=== PATIENT | male | born 1940 | race Caucasian/White ===

== ENCOUNTER 2016-03-02 15:25 | Inpatient (IN) | payer MEDICARE, BC ==
[~2016-03-02] VITALS: Ht 157.5 cm; Wt 62.0 kg
[2016-03-02 15:39] VITALS: BP 183/98; PULSE 82; RESP 17; TEMP 98.5; O2SAT 98
[2016-03-02] MEDS ORDERED: ATOR10TA15 PO (15:56)
[2016-03-02] MEDS ORDERED: DIOV160T6 PO (15:56)
[2016-03-02] MEDS ORDERED: ASPI81CH37 CHEW (15:56)
[2016-03-02] MEDS ORDERED: METF500T4 PO (15:56)
[2016-03-02] MEDS ORDERED: CARV3.12 PO (15:56)
[2016-03-02] MEDS ORDERED: SERO50TA PO (15:56)
[2016-03-02] MEDS ORDERED: SYMB80AE INH (15:56)
[2016-03-02] MEDS ORDERED: AMLO10TA2 PO (15:56)
[2016-03-02] MEDS ORDERED: CYAN100025 SL (15:56)
[2016-03-02] MEDS ORDERED: NAME5TAB2 PO (15:56)
[2016-03-02] MEDS ORDERED: PLAV75TA29 PO (15:56)
[2016-03-02] MEDS ORDERED: RANI1TAB7 PO (15:56)
[2016-03-02] MEDS ORDERED: MEMA1TAB2 PO (15:56)
--- NOTE | 2016-03-02 16:45 | PD ---
HPI Chief Complaint: Psychiatric Symptoms Time Seen by Provider: 16:41 Travel History International Travel<30 days: No Contact w/Intl Traveler<30days: No Traveled to known affect area: No History of Present Illness HPI 76-year-old male that presents to the ED for evaluation of Rajput act. Patient apparently was Rajput acted by police because apparently his been more paranoid and aggressive towards home nurse as well as to worse significant other. Police was contacted and they Rajput acted the patient because of this. Patient was taken to [facility] but for unknown reason patient was brought here for evaluation. Patient denies any medical problems to me. He denies any history of depression or anxiety. He states that about a week ago he did develop some chest pressure but it's been gone for the past 3 days. Per patient she's never had this before. Per patient he had a problem with high blood pressure for which he takes medications. Denies any posterior cholesterol. He does state having a no history of smoking. He denies any hallucinations. No agitation. Denies any homicidal or systolic ideation to me. There is no family to give me a bright any information and all information is obtained from the paperwork given from [facility] for the reason of the Rajput act. He has never been here before for something like this. At this time he denies any pain. He denies any nausea or vomiting. No urinary bowel movement issues. No fevers chills or sweats. He is very calm and denies anything. From my initial evaluation I do believe the patient has some sort of the early dementia which is on his diagnosis list from [facility] Past Medical History Anemia: Yes Cancer: Yes (Prostate) Cardiac Catheterization: Yes High Cholesterol: Yes Coronary Artery Disease: Yes Diabetes: No Patient Takes Glucophage: No GERD: Yes Hypertension: Yes Sleep Apnea: Yes Tetanus Vaccination: Unknown Influenza Vaccination: Yes Past Surgical History Appendectomy: Yes Coronary Stent: Yes Other Surgery: Yes (TURP) Social History Alcohol Use: Yes (occ) Tobacco Use: No Substance Use: No Allergies-Medications (Allergen,Severity, Reaction): Coded Allergies: No Known Allergies (Unverified , 03/02/16) Reported Meds & Prescriptions Reported Meds & Active Scripts Active Reported Seroquel (Quetiapine Fumarate) 50 Mg Tab 50 Mg PO HS Symbicort Inh (Budesonide/Formoterol Fumarate) 80-4.5 Mcg/Act Aero 2 Puff INH Q12HR B-12 (Cyanocobalamin) 1,000 Mcg Subl 1,000 Mcg SL DAILY Namenda (Memantine) 5 Mg Tab 5 Mg PO DAILY Atorvastatin (Atorvastatin Calcium) 10 Mg Tab 10 Mg PO HS Diovan (Valsartan) 160 Mg Tab 160 Mg PO DAILY Amlodipine (Amlodipine Besylate) 10 Mg Tab 10 Mg PO DAILY Aspirin Low Dose (Aspirin) 81 Mg Chew 81 Mg CHEW DAILY Memantine 10 Mg Tab 10 Mg PO BID Plavix (Clopidogrel Bisulfate) 75 Mg Tab 75 Mg PO DAILY Carvedilol 3.125 Mg Tab 3.125 Mg PO BID Metformin ER (Metformin HCl) 500 Mg Stewart 500 Mg PO DAILY With evening meal Ranitidine Maximum Strength (Ranitidine HCl) 150 Mg Tab 150 Mg PO BID Review of Systems Except as stated in HPI: all other systems reviewed are Neg Physical Exam Narrative GENERAL: SKIN: Warm and dry. HEAD: Atraumatic. Normocephalic. EYES: Pupils equal and round. No scleral icterus. No injection or drainage. ENT: No nasal bleeding or discharge. Mucous membranes pink and moist. Tongue is midline. No uvula deviation. NECK: Trachea midline. No JVD. CARDIOVASCULAR: Regular rate and rhythm. No murmurs, S3, S4. RESPIRATORY: No accessory muscle use. Clear to auscultation. Breath sounds equal bilaterally. GASTROINTESTINAL: Abdomen soft, non-tender, nondistended. Hepatic and splenic margins not palpable. MUSCULOSKELETAL: Extremities without clubbing, cyanosis, or edema. No obvious deformities. Full range of motion of the upper and lower extremities bilaterally. 2+ pulses bilaterally. NEUROLOGICAL: Awake and alert. No obvious cranial nerve deficits. Motor grossly within normal limits. Five out of 5 muscle strength in the arms and legs. Normal speech. PSYCHIATRIC: Demented mood and affect; insight and judgment normal. Data Data Last Documented VS Vital Signs Date Time Temp Pulse Resp B/P Pulse Ox O2 Delivery O2 Flow Rate FiO2 03/02/16 15:39 98.5 82 17 183/98 98 Orders Complete Blood Count With Diff (03/02/16 16:16) Comprehensive Metabolic Panel (03/02/16 16:16) Urinalysis - C+S If Indicated (03/02/16 16:16) Drug Screen, Random Urine (03/02/16 16:16) Alcohol (Ethanol) (03/02/16 16:16) Psych Screen (03/02/16 16:16) Ct Brain W/O Iv Contrast(Rout) (03/02/16 ) Troponin I (03/02/16 16:34) Electrocardiogram (03/02/16 ) Labs Laboratory Tests Test 03/02/16 03/02/16 17:00 17:19 White Blood Count 7.3 TH/MM3 Red Blood Count 4.78 MIL/MM3 Hemoglobin 12.2 GM/DL Hematocrit 37.6 % Mean Corpuscular Volume 78.7 FL Mean Corpuscular Hemoglobin 25.5 PG Mean Corpuscular Hemoglobin 32.4 % Concent Red Cell Distribution Width 16.3 % Platelet Count 297 TH/MM3 Mean Platelet Volume 8.4 FL Neutrophils (%) (Auto) 69.0 % Lymphocytes (%) (Auto) 17.2 % Monocytes (%) (Auto) 12.2 % Eosinophils (%) (Auto) 1.3 % Basophils (%) (Auto) 0.3 % Neutrophils # (Auto) 5.1 TH/MM3 Lymphocytes # (Auto) 1.3 TH/MM3 Monocytes # (Auto) 0.9 TH/MM3 Eosinophils # (Auto) 0.1 TH/MM3 Basophils # (Auto) 0.0 TH/MM3 CBC Comment DIFF FINAL Differential Comment Sodium Level 138 MEQ/L Potassium Level 3.6 MEQ/L Chloride Level 102 MEQ/L Carbon Dioxide Level 26.8 MEQ/L Anion Gap 9 MEQ/L Blood Urea Nitrogen 10 MG/DL Creatinine 0.78 MG/DL Estimat Glomerular Filtration 97 ML/MIN Rate Random Glucose 106 MG/DL Calcium Level 9.2 MG/DL Total Bilirubin 0.3 MG/DL Aspartate Amino Transf 15 U/L (AST/SGOT) Alanine Aminotransferase 20 U/L (ALT/SGPT) Alkaline Phosphatase 83 U/L Troponin I LESS THAN 0.02 NG/ML Total Protein 8.1 GM/DL Albumin 4.1 GM/DL Ethyl Alcohol Level LESS THAN 3 MG/DL Urine Color LIGHT-YELLOW Urine Turbidity CLEAR Urine pH 7.0 Urine Specific [place] 1.006 Urine Protein 30 mg/dL Urine Glucose (UA) NEG mg/dL Urine Ketones NEG mg/dL Urine Occult Blood NEG Urine Nitrite NEG Urine Bilirubin NEG Urine Urobilinogen LESS THAN 2.0 MG/DL Urine Leukocyte Esterase NEG Urine RBC 1 /hpf Microscopic Urinalysis Comment CULT NOT INDICATED Urine Opiates Screen NEG Urine Barbiturates Screen NEG Urine Amphetamines Screen NEG Urine Benzodiazepines Screen NEG Urine Cocaine Screen NEG Urine Cannabinoids Screen NEG MDM Medical Decision Making Medical Screen Exam Complete: Yes Emergency Medical Condition: Yes Medical Record Reviewed: Yes Interpretation(s) Last Impressions Head CT 03/02/16 0000 Signed Impressions: Service Date/Time: February 16:40 - CONCLUSION: 1. 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 2. No acute intracranial abnormalities. 3. 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 Fantasma Tyler MD CBC & BMP Diagram 03/02/16 17:00 LFTs WNL tox negative Differential Diagnosis Depression versus suicidal ideation versus anxiety versus adjustment disorder versus mood disorder versus bipolar disorder versus schizophrenia versus paranoid disorder versus psychosis versus substance abuse versus alcohol abuse versus alcohol induced psychosis versus homicidality addition versus cutting versus personality disorder Narrative Course 76-year-old male that presents to the ED for evaluation of psych. Patient was properly examined and was found to have signs and symptoms consistent appears to be psychiatric illness. Patient appears to be in no acute distress. Recommendation at this time is for labs and CT of the head as patient has never been here before for this as well as cardiac workup as he did complain of some chest pain and he does have a history of heart disease although he denies this to me. I do believe the patient does have some dementia. Labs and imaging showed no sign of acute disease. Patient will be medically cleared. Ok to be seen by psych. Mental health screening was discussed with the patient. 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
[2016-03-02 17:07] LABS: AUTOMATED NEUTROPHIL # 5.1 TH/MM3 (1.8-7.7); BASOPHIL % 0.3 % (0.0-2.0); EOSINOPHIL # 0.1 TH/MM3 (0-0.4); EOSINOPHIL % 1.3 % (0.0-4.0); HEMATOCRIT 37.6 % (39.0-51.0); HEMO FLAGS DIFF FINAL; LYMPH % 17.2 % (9.0-44.0); LYMPHOCYTE # 1.3 TH/MM3 (1.0-4.8); MEAN CELL VOLUME 78.7 FL (80.0-100.0); MEAN CORPUSCULAR HEMOGLOBIN 25.5 PG (27.0-34.0); MEAN CORPUSCULAR HGB CONC 32.4 % (32.0-36.0); MONO % 12.2 % (0.0-8.0); PLATELET COUNT 297 TH/MM3 (150-450); RED BLOOD COUNT 4.78 MIL/MM3 (4.50-5.90); RED CELL DISTRIBUTION WIDTH 16.3 % (11.6-17.2); WHITE BLOOD COUNT 7.3 TH/MM3 (4.0-11.0)
--- NOTE | 2016-03-02 17:28 | RADRPT ---
EXAM DATE/TIME: 03/02/2016 16:40 [facility] COMPARISON: No previous studies available for comparison. INDICATIONS : Confused,combative and aggressive today. RADIATION DOSE: 56.36 CTDIvol (mGy) MEDICAL HISTORY : Carcinoma, prostate. Hypertension. Cardiovascular disease SURGICAL HISTORY : Appendectomy. Turp ENCOUNTER: Initial ACUITY: 1 day PAIN SCALE: 0/10 LOCATION: cranial TECHNIQUE: Multiple contiguous axial images were obtained of the head. Using automated exposure control and adj ustment of the mA and/or kV according to patient size, radiation dose was kept as low as reasonably a chievable to obtain optimal diagnostic quality images. FINDINGS: CEREBRUM: The ventricles are normal for age. No evidence of midline shift, mass lesion, hemorrhage or acute in farction. 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 No extra-axial fluid collect ions are seen. POSTERIOR FOSSA: The cerebellum and brainstem are intact. The 4th ventricle is midline. The cerebellopontine angle i s unremarkable. EXTRACRANIAL: The visualized portion of the orbits is intact. SKULL: The calvaria is intact. No evidence of skull fracture. CONCLUSION: 1. 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 2. No acute intracranial abnormalities. 3. 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 Fantasma Tyler MD on March 02, 2016 at 17:26 Board Certified Radiologist. This report was verified electronically.
[2016-03-02 17:39] LABS: ANION GAP 9 MEQ/L (5-15)
[2016-03-02 17:42] LABS: ALKALINE PHOSPHATASE 83 U/L (45-117); ALT (GPT) 20 U/L (12-78); AST (GOT) 15 U/L (15-37); BICARBONATE 26.8 MEQ/L (21.0-32.0); BLOOD UREA NITROGEN 10 MG/DL (7-18); CHLORIDE 102 MEQ/L (98-107); GLOMERULAR FILTRATION RATE 97 ML/MIN (>89); POTASSIUM 3.6 MEQ/L (3.5-5.1); SODIUM (NA) 138 MEQ/L (136-145); TOTAL BILIRUBIN ADULT 0.3 MG/DL (0.2-1.0)
[2016-03-02 17:44] LABS: BLOOD, URINE NEG (NEG); GLUCOSE,URINE NEG (NEG); KETONE, URINE NEG (NEG); NITRITE,URINE NEG (NEG); URINE COLOR LIGHT-YELLOW (YELLW/STRAW)
[2016-03-02 17:52] LABS: AMPHETAMINE, URINE NEG (NEG); BARBITURATES, URINE NEG (NEG); COCAINE, URINE NEG (NEG)
[2016-03-02 17:54] LABS: COMMENT (UR) CULT NOT INDICATED; CULTURE IF INDICATED CULT NOT INDICATED
[2016-03-02] MEDS ORDERED: ALUMINUM/MAGNESIUM/SIMETH 30 ML CUP PO PRN (20:45)
[2016-03-02] MEDS ORDERED: DEXTROSE 50% IN WATER 50 ML VIAL(D50) IV PUSH PRN (20:45)
[2016-03-02] MEDS ORDERED: BENZTROPINE MESYLATE 1 MG TAB PO PRN (20:45)
[2016-03-02] MEDS ORDERED: GLUCAGON 1 MG/ML VIAL OTHER PRN (20:45)
[2016-03-02] MEDS ORDERED: MAGNESIUM HYDROXIDE SUSP 30 ML CUP PO PRN (20:45)
[2016-03-02] MEDS ORDERED: ACETAMINOPHEN 325 MG TAB PO PRN (20:45)
[2016-03-02] MEDS ORDERED: BENZTROPINE MESYLATE 2 MG/2 ML VIAL IM PRN (20:45)
[2016-03-02] MEDS ORDERED: LORazepam 0.5 MG TAB PO PRN (20:45)
[2016-03-02] MEDS ORDERED: LORazepam 2 MG/ML VIAL IM PRN (20:45)
[2016-03-02] MEDS ORDERED: diphenhydrAMINE HCL 50 MG CAP PO PRN (20:45)
[2016-03-02] MEDS ORDERED: ATORVASTATIN 10 MG TAB PO SCH (21:00)
[2016-03-02] MEDS ORDERED: RANITIDINE HCL 150 MG TAB PO SCH (21:00)
[2016-03-02] MEDS: INSULIN ASPART SUPPLEMENTAL SCALE SQ SCH (21:10)
[2016-03-02] MEDS ORDERED: PILL SPLITTER OTHER PRN (21:15)
[2016-03-02] MEDS: MEMANTINE HCL 10 MG TAB PO SCH (21:20)
[2016-03-02] MEDS: CARVEDILOL 3.125 MG TAB PO SCH (21:20)
[2016-03-02] MEDS: QUEtiapine FUMARATE 25 MG TAB PO SCH (21:20)
[2016-03-02] MEDS: FAMOTIDINE 20 MG TAB PO SCH (21:23)
[2016-03-02] MEDS: BUDESONIDE-FORMOTEROL 80/4.5 MCG INHALER INH SCH (21:38)
[2016-03-02 23:00] VITALS: BP 177/89; PULSE 86; RESP 16; O2SAT 97
[2016-03-03 01:00] VITALS: BP 155/79; PULSE 69; RESP 18; TEMP 97.9; O2SAT 100
[2016-03-03] MEDS: INSULIN ASPART SUPPLEMENTAL SCALE SQ SCH ×4 (06:12→21:00)
[2016-03-03 06:39] VITALS: BP 180/91; PULSE 66; RESP 17; TEMP 96.4; O2SAT 98
[2016-03-03 07:40] LABS: AUTOMATED NEUTROPHIL # 4.5 TH/MM3 (1.8-7.7); BASOPHIL % 0.4 % (0.0-2.0); EOSINOPHIL # 0.2 TH/MM3 (0-0.4); EOSINOPHIL % 2.8 % (0.0-4.0); HEMATOCRIT 35.2 % (39.0-51.0); HEMO FLAGS DIFF FINAL; LYMPHOCYTE # 1.9 TH/MM3 (1.0-4.8); MEAN CELL VOLUME 77.6 FL (80.0-100.0); MEAN CORPUSCULAR HEMOGLOBIN 25.9 PG (27.0-34.0); MEAN CORPUSCULAR HGB CONC 33.4 % (32.0-36.0); MONO % 14.2 % (0.0-8.0); NEUT % 57.6 % (16.0-70.0); PLATELET COUNT 286 TH/MM3 (150-450); RED BLOOD COUNT 4.54 MIL/MM3 (4.50-5.90); RED CELL DISTRIBUTION WIDTH 16.4 % (11.6-17.2); WHITE BLOOD COUNT 7.7 TH/MM3 (4.0-11.0)
[2016-03-03 07:57] LABS: HDL CHOLESTEROL 67.4 MG/DL (40.0-60.0); LDL CHOLESTEROL 78 MG/DL (0-99)
[2016-03-03] MEDS: VALSARTAN 160 MG TAB PO SCH (09:00)
[2016-03-03] MEDS: REMOVE OLD PATCH T-DERMAL SCH (09:00)
[2016-03-03] MEDS: metFORMIN HCL 500 MG TAB PO SCH ×2 (09:00→18:13)
[2016-03-03] MEDS: ASPIRIN 81 MG CHEW TAB CHEW SCH (09:00)
[2016-03-03] MEDS: NICOTINE 21 MG/24 HR PATCH T-DERMAL SCH (09:00)
[2016-03-03] MEDS ORDERED: NON-FORMULARY DRUG (Metformin ER 500 MG) PO SCH (09:00)
[2016-03-03] MEDS: BUDESONIDE-FORMOTEROL 80/4.5 MCG INHALER INH SCH ×2 (09:00→21:46)
[2016-03-03] MEDS ORDERED: NON-FORMULARY DRUG (Cyanocobalamin (B-12) 1,000 MCG) SL SCH (09:00)
[2016-03-03] MEDS: CYANOCOBALAMIN 1,000 MCG TAB PO SCH (09:00)
[2016-03-03] MEDS: CLOPIDOGREL 75 MG TAB PO SCH (09:22)
[2016-03-03] MEDS: MEMANTINE HCL 10 MG TAB PO SCH ×2 (09:22→21:46)
[2016-03-03] MEDS: FAMOTIDINE 20 MG TAB PO SCH ×2 (09:22→21:46)
[2016-03-03] MEDS: CARVEDILOL 3.125 MG TAB PO SCH ×2 (09:22→21:46)
[2016-03-03 11:00] VITALS: BP 140/88
--- NOTE | 2016-03-03 11:33 | PD.CONS ---
HPI Service [facility] Consult Requested By Psychiatric services Reason for Consult Assistance with management of medical issues Primary Care Physician Unknown Diagnoses: History of Present Illness This is a 76-year-old male patient with a past medical history which includes prostate cancer status post TURP, hyperlipidemia, CAD status post cardiac stent approximately 7 years ago, GERD and sleep apnea reports he does use 2 L oxygen via nasal cannula at night does not use CPAP machine. Patient is currently admitted inpatient psychiatric center we have been consulted for assistance with management of medical issues. Patient reports he is feeling fairly well at this time. Offers no specific complaints when questioned deeper about chest pain reports he had chest pain approximately a week ago but has not had any since that point. Patient reports he is getting over a cold/cough which began 2 weeks ago has occasional residual nonproductive cough which per patient is been getting better each day. Patient had chest pain last week which he attributes to coughing. Again patient denies chest pain at this time. Patient also complains of mild lower back pain which is going on for the past 2- 3 weeks usually resolved with aspirin at home. Patient denies fevers chills nausea vomiting diarrhea constipation chest pain shortness of breath. Review of Systems Other All other systems reviewed and negative except as mentioned in history of present illness Past Family Social History Allergies: Coded Allergies: No Known Allergies (Unverified , 03/02/16) Past Medical History Prostate cancer status post revision, hyperlipidemia, CAD status post cardiac stents 7 proximal to 7 years ago, GERD, sleep apnea does not use CPAP does use 2 L oxygen at night Past Surgical History Appendectomy, cardiac stent, TURP Reported Medications Seroquel (Quetiapine Fumarate) 50 Mg Tab 50 Mg PO HS Symbicort Inh (Budesonide/Formoterol Fumarate) 80-4.5 Mcg/Act Aero 2 Puff INH Q12HR B-12 (Cyanocobalamin) 1,000 Mcg Subl 1,000 Mcg SL DAILY Namenda (Memantine) 5 Mg Tab 5 Mg PO DAILY Atorvastatin (Atorvastatin Calcium) 10 Mg Tab 10 Mg PO HS Diovan (Valsartan) 160 Mg Tab 160 Mg PO DAILY Amlodipine (Amlodipine Besylate) 10 Mg Tab 10 Mg PO DAILY Aspirin Low Dose (Aspirin) 81 Mg Chew 81 Mg CHEW DAILY Memantine 10 Mg Tab 10 Mg PO BID Plavix (Clopidogrel Bisulfate) 75 Mg Tab 75 Mg PO DAILY Carvedilol 3.125 Mg Tab 3.125 Mg PO BID Metformin ER (Metformin HCl) 500 Mg Stewart 500 Mg PO DAILY With evening meal Ranitidine Maximum Strength (Ranitidine HCl) 150 Mg Tab 150 Mg PO BID Active Ordered Medications Current Medications Medications (Trade) Dose Ordered Sig/Amanda Route Start Time Stop Time Status Last Admin (Norvasc) 10 mg DAILY PO 03/03/16 09:00 03/03/16 09:21 (Aspirin Chew) 81 mg DAILY CHEW 03/03/16 09:00 03/03/16 09:00 (Lipitor) 10 mg HS PO 03/02/16 21:00 03/02/16 21:21 (Symbicort 80-4.5 Mcg Inh) 2 puff Q12HR INH 03/02/16 21:00 03/03/16 09:00 (Coreg) 3.125 mg BID PO 03/02/16 21:00 03/03/16 09:22 (Plavix) 75 mg DAILY PO 03/03/16 09:00 03/03/16 09:22 (Namenda) 10 mg BID PO 03/02/16 21:00 03/03/16 09:22 (SEROquel) 50 mg HS PO 03/02/16 21:00 03/02/16 21:20 (Diovan) 160 mg DAILY PO 03/03/16 09:00 03/03/16 09:00 (Ativan) 0.5 mg Q12H PRN PO 03/02/16 20:45 (Ativan Inj) 0.5 mg Q12H PRN IM 03/02/16 20:45 (Benadryl) 50 mg HS PRN PO 03/02/16 20:45 (Tylenol) 650 mg Q4H PRN PO 03/02/16 20:45 (Milk Of Magnesia Liq) 30 ml DAILY PRN PO 03/02/16 20:45 (Mag-Al Plus Susp Liq) 30 ml Q6H PRN PO 03/02/16 20:45 (Habitrol 21 Mg Patch.24 Hr) 1 patch DAILY T-DERMAL 03/03/16 09:00 (Cogentin) 1 mg Q12H PRN PO 03/02/16 20:45 (Cogentin Inj) 1 mg Q12H PRN IM 03/02/16 20:45 Miscellaneous Information 1 DAILY T-DERMAL 03/03/16 09:00 (D50w (Vial) Inj) 25 ml UNSCH PRN IV PUSH 03/02/16 20:45 (Glucagon Inj) 1 mg UNSCH PRN OTHER 03/02/16 20:45 (Vitamin B12) 1,000 mcg DAILY PO 03/03/16 09:00 03/03/16 09:00 (Glucophage) 250 mg BIDPC PO 03/03/16 09:00 03/03/16 09:00 (Pill Splitter) 1 ea UNSCH PRN OTHER 03/02/16 21:15 (Pepcid) 20 mg BID PO 03/02/16 21:30 03/03/16 09:22 Family History Mother at 65 of an SD Father had heart disease Social History Patient reports he drinks alcohol only on the weekends approximately 6 beers on Sunday and Sunday each week Patient reports he smoked 2 packs a day for most time he was a teenager tell approximately 6 years ago Physical Exam Vital Signs Vital Signs Date Time Temp Pulse Resp B/P Pulse Ox O2 Delivery O2 Flow Rate FiO2 03/03/16 06:39 96.4 66 17 180/91 98 03/03/16 01:00 97.9 69 18 155/79 100 03/02/16 23:00 86 16 177/89 97 Room Air 03/02/16 15:39 98.5 82 17 183/98 98 Physical Exam GENERAL: This is a well-nourished, well-developed patient, in no apparent distress. SKIN: No rashes, ecchymoses or lesions. Cool and dry. HEAD: Atraumatic. Normocephalic. No temporal or scalp tenderness. EYES: Extraocular motions intact. No scleral icterus. No injection or drainage. CARDIOVASCULAR: Regular rate and rhythm without murmurs, gallops, or rubs. RESPIRATORY: Clear to auscultation. Breath sounds equal bilaterally. No wheezes , rales, or rhonchi. GASTROINTESTINAL: Abdomen soft, non-tender, nondistended. No hepato-splenomegaly , or palpable masses. No guarding. MUSCULOSKELETAL: Extremities without clubbing, cyanosis, or edema. No joint tenderness, effusion, or edema noted. No calf tenderness. Negative Homans sign bilaterally. NEUROLOGICAL: Awake and alert, forgetful. No focal deficits appreciated Motor and sensory grossly within normal limits. 4-5 out of 5 muscle strength in all muscle groups. Normal speech. Laboratory Laboratory Tests Test 03/02/16 03/02/16 03/03/16 17:00 17:19 06:12 White Blood Count 7.3 7.7 Red Blood Count 4.78 4.54 Hemoglobin 12.2 11.8 Hematocrit 37.6 35.2 Mean Corpuscular Volume 78.7 77.6 Mean Corpuscular Hemoglobin 25.5 25.9 Mean Corpuscular Hemoglobin 32.4 33.4 Concent Red Cell Distribution Width 16.3 16.4 Platelet Count 297 286 Mean Platelet Volume 8.4 8.8 Neutrophils (%) (Auto) 69.0 57.6 Lymphocytes (%) (Auto) 17.2 25.0 Monocytes (%) (Auto) 12.2 14.2 Eosinophils (%) (Auto) 1.3 2.8 Basophils (%) (Auto) 0.3 0.4 Neutrophils # (Auto) 5.1 4.5 Lymphocytes # (Auto) 1.3 1.9 Monocytes # (Auto) 0.9 1.1 Eosinophils # (Auto) 0.1 0.2 Basophils # (Auto) 0.0 0.0 CBC Comment DIFF FINAL DIFF FINAL Differential Comment Sodium Level 138 Potassium Level 3.6 Chloride Level 102 Carbon Dioxide Level 26.8 Anion Gap 9 Blood Urea Nitrogen 10 Creatinine 0.78 Estimat Glomerular Filtration 97 Rate Random Glucose 106 Calcium Level 9.2 Total Bilirubin 0.3 Aspartate Amino Transf 15 (AST/SGOT) Alanine Aminotransferase 20 (ALT/SGPT) Alkaline Phosphatase 83 Troponin I LESS THAN 0.02 Total Protein 8.1 Albumin 4.1 Ethyl Alcohol Level LESS THAN 3 Urine Color LIGHT-YELLOW Urine Turbidity CLEAR Urine pH 7.0 Urine Specific [place] 1.006 Urine Protein 30 Urine Glucose (UA) NEG Urine Ketones NEG Urine Occult Blood NEG Urine Nitrite NEG Urine Bilirubin NEG Urine Urobilinogen LESS THAN 2.0 Urine Leukocyte Esterase NEG Urine RBC 1 Microscopic Urinalysis Comment CULT NOT INDICATED Urine Opiates Screen NEG Urine Barbiturates Screen NEG Urine Amphetamines Screen NEG Urine Benzodiazepines Screen NEG Urine Cocaine Screen NEG Urine Cannabinoids Screen NEG Triglycerides Level 68 Cholesterol Level 159 LDL Cholesterol 78 HDL Cholesterol 67.4 Cholesterol/HDL Ratio 2.35 Result Diagram: 03/03/16 0612 03/02/16 1700 Imaging Last Impressions Head CT 03/02/16 0000 Signed Impressions: Service Date/Time: February 16:40 - CONCLUSION: 1. 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 2. No acute intracranial abnormalities. 3. 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 Fantasma Tyler MD Assessment and Plan Assessment and Plan This is a 76-year-old male patient with a past medical history which includes prostate cancer status post TURP, hyperlipidemia, CAD status post cardiac stent approximately 7 years ago, GERD and sleep apnea reports he does use 2 L oxygen via nasal cannula at night does not use CPAP machine. Cough/cold 2 weeks ago nonproductive cough improving, chest pain resolved one week ago, lower back pain mild. Dementia- continue to Namenda Resolved chest pain- patient is somewhat forgetful troponin checked less than 0.02, EKG reviewed by myself as well as Dr. Wheeler reveals sinus rhythm with right bundle branch block History of CAD status post cardiac stent- continue Lipitor will increase dose to 40 mg daily, Coreg, aspirin, Plavix Hypertension- continue Norvasc and losartan Diabetes mellitus- continue metformin and sliding scale insulin coverage GERD- continue Pepcid Hyperlipidemia- Lipitor Mild lower back pain Tylenol as needed Thank you for the consultation and for allowing us to just take care of this patient. Patient appears medically stable at this time we'll sign off. Please reconsult the patient's condition changes or further assistance is needed. Plan of care discussed with patient, RN and Norma Cook Mar 03, 2016 11:33 Kenna Wheeler DO Mar 03, 2016 16:01
[2016-03-03 13:10] LABS: HEMOGLOBIN A1a 1.2 %; HEMOGLOBIN A1b 1.9 %; HEMOGLOBIN Ao 83.3 %
--- NOTE | 2016-03-03 13:16 | HHI.HP ---
Provisional Diagnosis Admission Date Mar 02, 2016 at 20:32 [place]. Dementia with behavioral disturbances F03.91 Certification of Person's Competence To Provide Express and Informed Consent I have personally examined Vin Noland , a person being served at [facility] on, Mar 03, 2016 13:00. Express and informed consent means consent voluntarily given in writing, by a competent person, after sufficient explanation and disclosure of the subject matter involved to enable the person to make a knowing and willful decision without any element of force, fraud, deceit, duress, or other form of constraint or coercion. This person is 18 years of age or older, is not now known to be incompetent to consent to treatment with a guardian advocate, and does not have a health care surrogate or proxy currently making medical treatment decisions. I have found this person to be one of the following: [] Competent to provide express and informed consent, as defined above, for voluntary admission to this facility and is competent to provide express and informed consent for treatment. He/she has the consistent capacity to make well reasoned, willful, and knowing decisions concerning his or her medical or mental health treatment. The person fully and consistently understands the purpose of the admission for examination/placement and is fully capable of personally exercising all rights assured [place] Incompetent to provide express and informed consent to voluntary admission, and this is incompetent to provide express and informed consent to treatment. The person must be transferred to involuntary status and a petition for a guardian advocate filed with the Circuit Court. []x Refusing to provide express and informed consent to voluntary admission but is competent to provide express and informed consent for treatment. The person must be discharged or transferred to involuntary status. Form shall be completed within 24 hours of a person's arrival at the receiving facility and filed in the clinical record of each person: 1. Admitted on a voluntary basis 2. Permitted to provide express and informed consent to his/her own treatment 3. Allowed to transfer from involuntary to voluntary status 4. Prior to permitting a person to consent to his or her own treatment after having been previously found incompetent to consent to treatment. History of Present Illness Capacity: Has Capacity (patient has capacity to participate in treatment, does not have capacity to agreed to admission) HPI Patient is a 76-year-old white male who comes here under Rajput act signed by a Dr. Gtz at [address] [place] [address] in [place] dated 03/02/16 at 9 AM stating confusion disorientation mood changes, combative, aggressive, homicidal threats. It appears patient was initially brought to [facility] then transferred to [facility]. Patient seen screened in the ED urine toxicology negative but alcohol level negative. At the present time patient standing in the guzman with nurse Joseph and myself is calm cooperative speaking with a accent there is benefit from [place] for many years somewhat diffusely confused story about his living situation initially stating he lives with his son, then stated he lived with his , then added his son, there is stated that he has been for a number of years and is living with his fiance. Vague diffuse confusion persisted throughout the session. However he does know he is in [place] does note 2017 though somewhat confused with a month. He denies any prior psychiatric contact hospitalization the psychotropic medication at the present time is on Seroquel 50 mg at at bedtime. He does deny any physical or sexual abuse in the past, states he does occasionally drink a beer. Denies other drug use. States his mother may have been bipolar he is vague about the behaviors that led to this hospitalization that appear she was showing more paranoia and aggressiveness in question for compliance medication also with his family. At this time patient does meet criteria for acute psychiatric hospitalization of the Rajput act I'll do first opinion requests second opinion. However I feel he does have complements to guide his treatment. We'll continue medications per the medication reconciliation at this time with no change. Further observe the patient. Family to come to my treatment team on 03/06. We will have the The hospitalist consult with us also Review of Systems Constitutional: DENIES: Diaphoretic episodes, Fatigue, Fever, Weight gain, Weight loss, Chills, Dizziness, Change in appetite, Night Sweats Endocrine: DENIES: Heat/cold intolerance, Polydipsia, Polyuria, Polyphagia Eyes: DENIES: Blurred vision, Diplopia, Eye inflammation, Eye pain, Vision loss , Photosensitivity, Double Vision Ears, nose, mouth, throat: DENIES: Tinnitus, Hearing loss, Vertigo, Nasal discharge, Oral lesions, Throat pain, Hoarseness, Ear Pain, Running Nose, Epistaxis, Sinus Pain, Toothache, Odynophagia Respiratory: DENIES: Apneas, Cough, Snoring, Wheezing, Hemoptysis, Sputum production, Shortness of breath Cardiovascular: DENIES: Chest pain, Palpitations, Syncope, Dyspnea on Exertion , PND, Lower Extremity Edema, Orthopnea, Claudication Gastrointestinal: DENIES: Abdominal pain, Black stools, Bloody stools, Constipation, Diarrhea, Nausea, Vomiting, Difficulty Swallowing, Anorexia Genitourinary: DENIES: Sexual dysfunction, Urinary frequency, Urinary incontinence, Urgency, Hematuria, Dysuria, Nocturia, Penile Discharge, Testicular Pain, Testicular Swelling Musculoskeletal: DENIES: Joint pain, Muscle aches, Stiffness, Joint Swelling, Back pain, Neck pain Integumentary: DENIES: Abnormal pigmentation, Nail changes, Pruritus, Rash Hematologic/lymphatic: DENIES: Bruising, Lymphadenopathy Immunologic/allergic: DENIES: Eczema, Urticaria Neurologic: DENIES: Abnormal gait, Headache, Localized weakness, Paresthesias, Seizures, Speech Problems, Tremor, Poor Balance Psychiatric: COMPLAINS OF: Confusion, Agitation Past Psych History Psychological trauma history Patient denies any physical or sexual abuse Violence risk - others (6 mos) Patient aggressive towards visiting nurse and family Violence risk - self (6 mos) Low Substance Abuse History Drugs/Alcohol past 12 months Patient denies the acknowledges occasional beer Past Family Social History Coded Allergies: No Known Allergies (Unverified , 03/02/16) Past Medical History Please see MedSurg assessment Reported Medications Quetiapine (Seroquel)50 Mg Tab50 Mg PO HS #30 TAB Ref 0 03/02/16 Budesonide-Formoterol Inh (Symbicort Inh)80-4.5 Mcg/Act Aero2 Puff INH Q12HR # 1 INHALER Ref 0 03/02/16 Cyanocobalamin (B-12)1,000 Mcg Subl1,000 Mcg SL DAILY Ref 0 03/02/16 Memantine (Namenda)5 Mg Tab5 Mg PO DAILY #30 TAB Ref 0 03/02/16 Atorvastatin 10 Mg Tab10 Mg PO HS #30 TAB Ref 0 03/02/16 Valsartan (Diovan)160 Mg Juw415 Mg PO DAILY #30 TAB Ref 0 03/02/16 Amlodipine 10 Mg Tab10 Mg PO DAILY #30 TAB Ref 0 03/02/16 Aspirin (Aspirin Low Dose)81 Mg Chew81 Mg CHEW DAILY Ref 0 03/02/16 Memantine 10 Mg Tab10 Mg PO BID Ref 0 03/02/16 Clopidogrel (Plavix)75 Mg Tab75 Mg PO DAILY #30 TAB Ref 0 03/02/16 Carvedilol 3.125 Mg Tab3.125 Mg PO BID #60 TAB Ref 0 03/02/16 Metformin ER 500 Mg [id number] Mg PO DAILY Ref 0 With evening meal 03/02/16 Ranitidine (Ranitidine Maximum Strength)150 Mg [id number] Mg PO BID Ref 0 03/02/16 Current Medications Medications (Trade) Dose Ordered Sig/Amanda Route Start Time Stop Time Status Last Admin (Norvasc) 10 mg DAILY PO 03/03/16 09:00 03/03/16 09:21 (Aspirin Chew) 81 mg DAILY CHEW 03/03/16 09:00 03/03/16 09:00 (Symbicort 80-4.5 Mcg Inh) 2 puff Q12HR INH 03/02/16 21:00 03/03/16 09:00 (Coreg) 3.125 mg BID PO 03/02/16 21:00 03/03/16 09:22 (Plavix) 75 mg DAILY PO 03/03/16 09:00 03/03/16 09:22 (Namenda) 10 mg BID PO 03/02/16 21:00 03/03/16 09:22 (SEROquel) 50 mg HS PO 03/02/16 21:00 03/02/16 21:20 (Diovan) 160 mg DAILY PO 03/03/16 09:00 03/03/16 09:00 (Ativan) 0.5 mg Q12H PRN PO 03/02/16 20:45 (Ativan Inj) 0.5 mg Q12H PRN IM 03/02/16 20:45 (Benadryl) 50 mg HS PRN PO 03/02/16 20:45 (Tylenol) 650 mg Q4H PRN PO 03/02/16 20:45 (Milk Of Magnesia Liq) 30 ml DAILY PRN PO 03/02/16 20:45 (Mag-Al Plus Susp Liq) 30 ml Q6H PRN PO 03/02/16 20:45 (Habitrol 21 Mg Patch.24 Hr) 1 patch DAILY T-DERMAL 03/03/16 09:00 (Cogentin) 1 mg Q12H PRN PO 03/02/16 20:45 (Cogentin Inj) 1 mg Q12H PRN IM 03/02/16 20:45 Miscellaneous Information 1 DAILY T-DERMAL 03/03/16 09:00 (D50w (Vial) Inj) 25 ml UNSCH PRN IV PUSH 03/02/16 20:45 (Glucagon Inj) 1 mg UNSCH PRN OTHER 03/02/16 20:45 (Vitamin B12) 1,000 mcg DAILY PO 03/03/16 09:00 03/03/16 09:00 (Glucophage) 250 mg BIDPC PO 03/03/16 09:00 03/03/16 09:00 (Pill Splitter) 1 ea UNSCH PRN OTHER 03/02/16 21:15 (Pepcid) 20 mg BID PO 03/02/16 21:30 03/03/16 09:22 (Lipitor) 40 mg HS PO 03/03/16 21:00 Family History Patient has a fianc with whom he lives. Lives also with his adult son. He has another son and daughter that lives Social History Patient lives with fianc Patient's Strengths (min. 2) Patient cooperative [facility] Physical Exam Patient seen screened in ED exam reviewed and agreed with vital signs blood pressure 180/91 pulse 66 respirations 17 Vital Signs Vital Signs Date Time Temp Pulse Resp B/P Pulse Ox O2 Delivery O2 Flow Rate FiO2 03/03/16 06:39 96.4 66 17 180/91 98 03/02/16 23:00 Room Air Mental Status Examination Alert oriented to place and time and situation. Though overall mildly diffusely confused. Contact Appearance Clean and neat Speech: Unremarkable, Circumstantial (mildly), Tangential (mildly ) Orientation: Person, Place, Situation Memory: Unremarkable Thought Process: Linear Thought Content: Unremarkable, Other (somewhat vigilant) Hallucination Type: None (denies) Attention and Concentration: Other (fair) Suicidal Ideation: No Previous Suicide Attempts: No Homicidal Ideation: Yes (made threatening statements towards family) Previous Homicide Attempts: No Insight: Poor Judgement: Poor Affect: Other (slight decreased range and intensity) Mood: Euthymic (to somewhat restricted) Motor Activity: Normal gait Assessment & Plan Problem List: (1) UNSPECIFIED DEMENTIA WITH BEHAVIORAL DISTURBANCE ICD Code: F03.91 Assessment & Plan Estimated LOS: 5-7 days patient showing confusion disorientation with mild dementia, for now we'll continue medication per the MAR and observe behavior. Invited family to buy treatment team on 03/06 Discharge Planning To be determined Request HC Surrog/Guard Advoc?: No Benedict Haro MD Mar 03, 2016 13:16
[2016-03-03] MEDS ORDERED: ALUMINUM/MAGNESIUM/SIMETH 30 ML CUP PO PRN (14:00)
[2016-03-03] MEDS ORDERED: ACETAMINOPHEN 325 MG TAB PO PRN (14:00)
[2016-03-03] MEDS ORDERED: MAGNESIUM HYDROXIDE SUSP 30 ML CUP PO PRN (14:00)
--- NOTE | 2016-03-03 16:37 | EKG ---
Date Performed: 03/02/2016 Time Performed: 17:04:30 PTAGE: 76 years EKG: Sinus rhythm RIGHT BUNDLE BRANCH BLOCK ABNORMAL ECG NO PREVIOUS TRACING DOCTOR: Joseph Tran Interpretating Date/Time 03/03/2016 16:35:45
[2016-03-03] MEDS: QUEtiapine FUMARATE 25 MG TAB PO SCH (21:46)
[2016-03-03] MEDS: ATORVASTATIN 40 MG TAB PO SCH (21:47)
[2016-03-04 06:40] VITALS: BP 125/68; PULSE 66; RESP 15; TEMP 99.3; O2SAT 97
[2016-03-04] MEDS: INSULIN ASPART SUPPLEMENTAL SCALE SQ SCH ×4 (06:42→20:49)
[2016-03-04 08:43] LABS: BASOPHIL % 0.3 % (0.0-2.0); EOSINOPHIL # 0.2 TH/MM3 (0-0.4); EOSINOPHIL % 2.3 % (0.0-4.0); HEMATOCRIT 35.6 % (39.0-51.0); HEMO FLAGS DIFF FINAL; LYMPH % 21.9 % (9.0-44.0); LYMPHOCYTE # 1.8 TH/MM3 (1.0-4.8); MEAN CELL VOLUME 78.2 FL (80.0-100.0); MEAN CORPUSCULAR HGB CONC 31.9 % (32.0-36.0); MONO % 13.5 % (0.0-8.0); PLATELET COUNT 281 TH/MM3 (150-450); RED BLOOD COUNT 4.55 MIL/MM3 (4.50-5.90); RED CELL DISTRIBUTION WIDTH 16.1 % (11.6-17.2)
[2016-03-04 08:47] VITALS: BP 115/61; PULSE 53; RESP 18
[2016-03-04] MEDS: CYANOCOBALAMIN 1,000 MCG TAB PO SCH (08:58)
[2016-03-04] MEDS: metFORMIN HCL 500 MG TAB PO SCH ×2 (08:58→18:16)
[2016-03-04] MEDS: CARVEDILOL 3.125 MG TAB PO SCH ×2 (08:58→21:18)
[2016-03-04] MEDS: VALSARTAN 160 MG TAB PO SCH (08:58)
[2016-03-04] MEDS: BUDESONIDE-FORMOTEROL 80/4.5 MCG INHALER INH SCH ×2 (08:58→21:18)
[2016-03-04] MEDS: FAMOTIDINE 20 MG TAB PO SCH ×2 (08:59→21:18)
[2016-03-04] MEDS: CLOPIDOGREL 75 MG TAB PO SCH (08:59)
[2016-03-04] MEDS: ASPIRIN 81 MG CHEW TAB CHEW SCH (08:59)
[2016-03-04] MEDS: NICOTINE 21 MG/24 HR PATCH T-DERMAL SCH (09:00)
[2016-03-04] MEDS: REMOVE OLD PATCH T-DERMAL SCH (09:00)
[2016-03-04] MEDS: MEMANTINE HCL 10 MG TAB PO SCH ×2 (09:00→21:19)
[2016-03-04] MEDS ORDERED: NICOTINE 21 MG/24 HR PATCH T-DERMAL SCH (09:00)
[2016-03-04 09:04] LABS: ALT (GPT) 17 U/L (12-78); ANION GAP 7 MEQ/L (5-15); AST (GOT) 12 U/L (15-37); BICARBONATE 31.5 MEQ/L (21.0-32.0); BLOOD UREA NITROGEN 15 MG/DL (7-18); CHLORIDE 102 MEQ/L (98-107); GLOMERULAR FILTRATION RATE 76 ML/MIN (>89); POTASSIUM 3.8 MEQ/L (3.5-5.1); SODIUM (NA) 140 MEQ/L (136-145)
[2016-03-04 09:06] LABS: ALKALINE PHOSPHATASE 67 U/L (45-117); TOTAL BILIRUBIN ADULT 0.4 MG/DL (0.2-1.0)
[2016-03-04 09:31] LABS: HDL CHOLESTEROL 56.1 MG/DL (40.0-60.0)
--- NOTE | 2016-03-04 12:52 | HHI.PYPN ---
Subjective Remarks This a second opinion for Dr. Haro. Patient was seen, case discussed with nursing, and chart reviewed. Patient's admission criteria include: "confusion disorientation mood changes, combative, aggressive, homicidal threats." Patient was asked about this behavior and says he does not remember. He is alert and oriented 2 and cannot tell me the date. In this unit he has been pleasant and cooperative. Getting along well with his roommate and others. Compliant with his medications. Denies auditory or visualizations. Denies suicidal ideations thought or plan Objective Alert: Yes [place]: Person, Place Mood: Calm Affect: Blunted Memory Intact: Remote (impaired) Hallucinations: Other Delusions: No Delusion Type: Other Suicidal: Ideation (denies) Homicidal: Ideation (denies) Insight/Judgement Poor Labs Test 03/04/16 07:50 White Blood Count 8.0 TH/MM3 Red Blood Count 4.55 MIL/MM3 Hemoglobin 11.4 GM/DL Hematocrit 35.6 % Mean Corpuscular Volume 78.2 FL Mean Corpuscular Hemoglobin 25.0 PG Mean Corpuscular Hemoglobin 31.9 % Concent Red Cell Distribution Width 16.1 % Platelet Count 281 TH/MM3 Mean Platelet Volume 8.8 FL Neutrophils (%) (Auto) 62.0 % Lymphocytes (%) (Auto) 21.9 % Monocytes (%) (Auto) 13.5 % Eosinophils (%) (Auto) 2.3 % Basophils (%) (Auto) 0.3 % Neutrophils # (Auto) 5.0 TH/MM3 Lymphocytes # (Auto) 1.8 TH/MM3 Monocytes # (Auto) 1.1 TH/MM3 Eosinophils # (Auto) 0.2 TH/MM3 Basophils # (Auto) 0.0 TH/MM3 CBC Comment DIFF FINAL Differential Comment Sodium Level 140 MEQ/L Potassium Level 3.8 MEQ/L Chloride Level 102 MEQ/L Carbon Dioxide Level 31.5 MEQ/L Anion Gap 7 MEQ/L Blood Urea Nitrogen 15 MG/DL Creatinine 0.96 MG/DL Estimat Glomerular Filtration 76 ML/MIN Rate Random Glucose 101 MG/DL Calcium Level 9.1 MG/DL Total Bilirubin 0.4 MG/DL Aspartate Amino Transf 12 U/L (AST/SGOT) Alanine Aminotransferase 17 U/L (ALT/SGPT) Alkaline Phosphatase 67 U/L Total Protein 6.9 GM/DL Albumin 3.5 GM/DL Triglycerides Level 95 MG/DL Cholesterol Level 138 MG/DL LDL Cholesterol 63 MG/DL HDL Cholesterol 56.1 MG/DL Cholesterol/HDL Ratio 2.45 RATIO Vitals/IOs Vital Signs Date Time Temp Pulse Resp B/P Pulse Ox O2 Delivery O2 Flow Rate FiO2 03/04/16 08:47 53 18 115/61 03/04/16 06:40 99.3 97 03/02/16 23:00 Room Air Intake and Output 03/03/16 03/03/16 03/04/16 08:00 16:00 00:00 Intake Total 360 ml 360 ml Balance 360 ml 360 ml Assessment & Plan Problem List: (1) UNSPECIFIED DEMENTIA WITH BEHAVIORAL DISTURBANCE ICD Code: F03.91 Assessment & Plan I agree with first opinion to continue petition. Criteria include confusion and combative behavior before admission Justification for Cont. Inpt. Patient will decompensate outside the hospital Request HC Surrog/Guard Advoc?: No Kevin Rogers DO Mar 04, 2016 12:52
[2016-03-04 20:06] VITALS: BP 150/81; PULSE 100; RESP 17; TEMP 97.1; O2SAT 95
[2016-03-04] MEDS: ATORVASTATIN 40 MG TAB PO SCH (21:19)
[2016-03-04] MEDS: QUEtiapine FUMARATE 25 MG TAB PO SCH (21:19)
[2016-03-05 06:19] VITALS: BP 115/74; PULSE 62; RESP 18; TEMP 99.1; O2SAT 96
[2016-03-05] MEDS: INSULIN ASPART SUPPLEMENTAL SCALE SQ SCH ×4 (06:19→19:31)
[2016-03-05] MEDS: ASPIRIN 81 MG CHEW TAB CHEW SCH (08:32)
[2016-03-05] MEDS: FAMOTIDINE 20 MG TAB PO SCH ×2 (08:32→20:44)
[2016-03-05] MEDS: VALSARTAN 160 MG TAB PO SCH (08:32)
[2016-03-05] MEDS: metFORMIN HCL 500 MG TAB PO SCH ×2 (08:32→17:54)
[2016-03-05] MEDS: BUDESONIDE-FORMOTEROL 80/4.5 MCG INHALER INH SCH ×2 (08:32→20:43)
[2016-03-05] MEDS: CLOPIDOGREL 75 MG TAB PO SCH (08:32)
[2016-03-05] MEDS: CYANOCOBALAMIN 1,000 MCG TAB PO SCH (08:33)
[2016-03-05] MEDS: MEMANTINE HCL 10 MG TAB PO SCH ×2 (09:00→20:44)
[2016-03-05] MEDS: REMOVE OLD PATCH T-DERMAL SCH (09:00)
[2016-03-05] MEDS: CARVEDILOL 3.125 MG TAB PO SCH ×2 (09:00→20:44)
[2016-03-05] MEDS: NICOTINE 21 MG/24 HR PATCH T-DERMAL SCH (09:00)
--- NOTE | 2016-03-05 12:32 | HHI.PYPN ---
Subjective Remarks Patient was seen and case discussed with nursing. Patient is pleasant and cooperative with exam. Alert and oriented 2, not knowing the date. Remains confused about why he was admitted.'s doing well per nursing. Had a visit from his family yesterday. Denies depressed mood. Denies suicidal ideations thought or plan. Denies auditory visual hallucinations. Thought process is mildly disorganized Objective Alert: Yes [place]: Person, Place Mood: Calm Affect: Blunted Memory Intact: Remote (impaired) Hallucinations: Other Delusions: No Delusion Type: Other Suicidal: Ideation (denies) Homicidal: Ideation (denies) Insight/Judgement Poor Vitals/IOs Vital Signs Date Time Temp Pulse Resp B/P Pulse Ox O2 Delivery O2 Flow Rate FiO2 03/05/16 06:19 99.1 62 18 115/74 96 03/02/16 23:00 Room Air Intake and Output 03/04/16 03/04/16 03/05/16 08:00 16:00 00:00 Intake Total 1320 ml Balance 1320 ml Assessment & Plan Problem List: (1) UNSPECIFIED DEMENTIA WITH BEHAVIORAL DISTURBANCE ICD Code: F03.91 Assessment & Plan Continue current treatment plan Justification for Cont. Inpt. Patient will decompensate outside of a less restrictive setting Request HC Surrog/Guard Advoc?: No Kevin Rogers DO Mar 05, 2016 12:32
[2016-03-05 19:45] VITALS: BP 145/75; PULSE 70; RESP 18; TEMP 98.6; O2SAT 100
[2016-03-05] MEDS: ATORVASTATIN 40 MG TAB PO SCH (20:44)
[2016-03-05] MEDS: QUEtiapine FUMARATE 25 MG TAB PO SCH (20:44)
[2016-03-06 05:32] VITALS: BP 135/73; PULSE 66; RESP 16; TEMP 98.4; O2SAT 96
[2016-03-06] MEDS: INSULIN ASPART SUPPLEMENTAL SCALE SQ SCH ×3 (06:42→15:54)
[2016-03-06] MEDS: NICOTINE 21 MG/24 HR PATCH T-DERMAL SCH (09:00)
[2016-03-06] MEDS: REMOVE OLD PATCH T-DERMAL SCH (09:00)
[2016-03-06] MEDS: CYANOCOBALAMIN 1,000 MCG TAB PO SCH (09:00)
[2016-03-06] MEDS: metFORMIN HCL 500 MG TAB PO SCH (09:49)
[2016-03-06] MEDS: FAMOTIDINE 20 MG TAB PO SCH (09:49)
[2016-03-06] MEDS: MEMANTINE HCL 10 MG TAB PO SCH (09:50)
[2016-03-06] MEDS: CARVEDILOL 3.125 MG TAB PO SCH (09:50)
[2016-03-06] MEDS: CLOPIDOGREL 75 MG TAB PO SCH (09:50)
[2016-03-06] MEDS: BUDESONIDE-FORMOTEROL 80/4.5 MCG INHALER INH SCH (09:51)
[2016-03-06] MEDS: ASPIRIN 81 MG CHEW TAB CHEW SCH (09:51)
[2016-03-06] MEDS: VALSARTAN 160 MG TAB PO SCH (09:51)
[2016-03-06] MEDS ORDERED: DIOV160T6 PO (16:04)
[2016-03-06] MEDS ORDERED: SERO25TA PO (16:04)
[2016-03-06] MEDS ORDERED: SYMB80AE INH (16:04)
[2016-03-06] MEDS ORDERED: Aspirin Chew CHEW (16:04)
[2016-03-06] MEDS ORDERED: CARV3.125 PO (16:04)
[2016-03-06] MEDS ORDERED: AMLO10 PO (16:04)
[2016-03-06] MEDS ORDERED: FAMO20TA2 PO (16:04)
[2016-03-06] MEDS ORDERED: VITA10002 PO (16:04)
[2016-03-06] MEDS ORDERED: LIPI40TA PO (16:04)
[2016-03-06] MEDS ORDERED: NAME10TA PO (16:04)
[2016-03-06] MEDS ORDERED: METF500 PO (16:04)
[2016-03-06] MEDS ORDERED: PLAV75TA29 PO (16:04)
--- NOTE | 2016-03-06 16:08 | HHI.DS ---
Psychiatry Discharge Summary Inpatient Psychiatric care?: Yes Advance Directive: No Reason Not Provided: Due to Patient Condition Mental Health AdvanceDirective: No Health Care Proxy: No Admission Admission Date Mar 02, 2016 at 20:32 Admission Diagnosis: (1) UNSPECIFIED DEMENTIA WITH BEHAVIORAL DISTURBANCE ICD Code: F03.91 Brief History Patient is a 76-year-old white male who comes here under Rajput act signed by a Dr. Gtz at [address] [place] [address] in [place] dated 03/02/16 at 9 AM stating confusion disorientation mood changes, combative, aggressive, homicidal threats. It appears patient was initially brought to [facility] then transferred to [facility]. Patient seen screened in the ED urine toxicology negative but alcohol level negative. At the present time patient standing in the guzman with nurse Joseph and myself is calm cooperative speaking with a accent there is benefit from [place] for many years somewhat diffusely confused story about his living situation initially stating he lives with his son, then stated he lived with his , then added his son, there is stated that he has been for a number of years and is living with his fiance. Vague diffuse confusion persisted throughout the session. However he does know he is in [place] does note 2017 though somewhat confused with a month. He denies any prior psychiatric contact hospitalization the psychotropic medication at the present time is on Seroquel 50 mg at at bedtime. He does deny any physical or sexual abuse in the past, states he does occasionally drink a beer. Denies other drug use. States his mother may have been bipolar he is vague about the behaviors that led to this hospitalization that appear she was showing more paranoia and aggressiveness in question for compliance medication also with his family. At this time patient does meet criteria for acute psychiatric hospitalization of the Rajput act I'll do first opinion requests second opinion. However I feel he does have complements to guide his treatment. We'll continue medications per the medication reconciliation at this time with no change. Further observe the patient. Family to come to my treatment team on 03/06. We will have the The hospitalist consult with us also Tobacco Use In Past 30 Days: No Tobacco Past 30 Days Alcohol Use: 2-3 Times Per Week Hospital Course Patient was calm cooperative from the initial contact on the unit. Compliant with medications. Showing no significant behavioral problems. And has been adjusted. We did meet with the patient's son, daughter and daughter's . They'll feel he is doing better that he would like to be discharged home that the family wants him home, they're aware that he needs further care and follow- up. I willing to take responsibility for that. Patient does denies suicidality homicidality voices or visions. Thus patient will be discharged today to his family Rx 1 month follow-up either [facility] or behavioral Results Blood Pressure 135 / 73 Vital Signs Date Time Temp Pulse Resp B/P Pulse Ox O2 Delivery O2 Flow Rate FiO2 03/06/16 05:32 98.4 66 16 135/73 96 03/02/16 23:00 Room Air Laboratory Tests Test 03/04/16 07:50 Hemoglobin 11.4 GM/DL (13.0-17.0) Hematocrit 35.6 % (39.0-51.0) Mean Corpuscular Volume 78.2 FL (80.0-100.0) Mean Corpuscular Hemoglobin 25.0 PG (27.0-34.0) Mean Corpuscular Hemoglobin 31.9 % Concent (32.0-36.0) Monocytes (%) (Auto) 13.5 % (0.0-8.0) Monocytes # (Auto) 1.1 TH/MM3 (0-0.9) Estimat Glomerular Filtration 76 ML/MIN (>89) Rate Aspartate Amino Transf 12 U/L (15-37) (AST/SGOT) Laboratory Results Test 03/03/16 03/04/16 06:12 07:50 Hemoglobin A1c 6.8 % (4.3-6.0) Triglycerides Level 95 MG/DL (42-150) Cholesterol Level 138 MG/DL (120-200) LDL Cholesterol 63 MG/DL (0-99) HDL Cholesterol 56.1 MG/DL (40.0-60.0) Summary of Procedures None done Imaging Last Impressions Head CT 03/02/16 0000 Signed Impressions: Service Date/Time: February 16:40 - CONCLUSION: 1. 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 2. No acute intracranial abnormalities. 3. 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 Fantasma Tyler MD Pending results at discharge: No Medications # of Antipsychotic meds at D/C: 1 Approp Antipsych med options 1 - Minimum of three failed multiple trials of monotherapy. 2 - Documented plan to taper to monotherapy due to previous use of multiple meds OR cross-taper in progress at D/C. 3 - Documentation of augmentation of Clozapine. 4 - Justification other than those listed in allowable values 1-3, document here : Discharge Discharge Date: Mar 06, 2016 Discharge Diagnosis: (1) UNSPECIFIED DEMENTIA WITH BEHAVIORAL DISTURBANCE Diagnosis: Principal ICD Code: F03.91 Mental Status Exam at Disch Alert male diffusely confused all 4 spheres, he has normal active, his mood is euthymic to somewhat restricted affect show slight decreased range intensity. There are no auditory or visual hallucinations no delusions noted insight and judgment is poor cognition is somewhat diminished Pt Condition on Discharge: Stable Discharge Disposition: Discharge Home Discharge Instructions Diet Instructions: As Tolerated, No Restrictions Activities you can perform: Regular-No Restrictions Scheduled Appointment: Viktor dalton Appointment Date: Mar 23, 2016 Appointment Time: 8:00am Discharge Time > 30 minutes Discharge/Advance Care Plan Health Problems: (1) UNSPECIFIED DEMENTIA WITH BEHAVIORAL DISTURBANCE Goals to promote your health * To prevent worsening of your condition and complications * To maintain your health at the optimal level Directions to meet your goals Take your medications as prescribed Follow your dietary instruction Follow activity as directed Keep your appointments as scheduled Take your immunizations and boosters as scheduled If your symptoms worsen call your PCP, if no PCP go to Urgent Care Center or Emergency Room For 28/08 questions related to your inpatient stay or results of tests pending at discharge, please contact Dr. Benedict Haro at Smoking is Dangerous to Your Health. Avoid second hand smoking Benedict Haro MD Mar 06, 2016 16:08
== END 2016-03-06 17:25 | disposition home or self-care (01) | DRG 884 ==
LOC: NEPC 15:25 → NEDA 20:32 → H250 03-03 00:30
PROVIDERS: ADMIT Psychiatry & Neurology Psychiatry; ATTEND Psychiatry & Neurology Psychiatry
DX: F03.91 Unspecified dementia, unspecified severity, with behavioral disturbance (principal); Z99.81 Dependence on supplemental oxygen; I45.10 Unspecified right bundle-branch block; R45.850 Homicidal ideations; I10 Essential (primary) hypertension; I25.10 Atherosclerotic heart disease of native coronary artery without angina pectoris; K21.9 Gastro-esophageal reflux disease without esophagitis; G47.30 Sleep apnea, unspecified; E78.5 Hyperlipidemia, unspecified; Z79.899 Other long term (current) drug therapy; Z85.46 Personal history of malignant neoplasm of prostate; Z87.891 Personal history of nicotine dependence; Z95.5 Presence of coronary angioplasty implant and graft
CPT/HCPCS: 70450; 80053; 80061; 80307; 80320; 81001; 82948; 83036; 84484; 85025; 93005; J1815